=== PATIENT | male | born 1950 ===

== ENCOUNTER 2018-06-10 08:23 | Day surgery (SDC) | payer MEDICARE, MEDICAID ==
[2018-06-10 08:36] VITALS: BMI 23.4
[2018-06-10 09:03] LABS: BASO % 0.2 % (0.0-2.0); EOS # 0.6 K/uL (0.0-0.7); EOS % 6.6 % (0.0-4.0); HEMOGLOBIN 14.4 g/dL (12.0-18.0); LYMPH # 2.6 K/uL (1.0-4.3); LYMPH % 28.9 % (20.0-40.0); MEAN CELL VOLUME 92.9 fL (80.0-94.0); MEAN CORPUSCULAR HEMOGLOBIN 31.8 pg (27.0-31.0); MEAN CORPUSCULAR HGB CONC 34.2 g/dL (33.0-37.0); MEAN PLATELET VOLUME 8.5 fL (7.2-11.7); MONO # 0.7 K/uL (0.0-0.8); MONO % 7.3 % (0.0-10.0); NEUT # 5.2 K/uL (1.8-7.0); NRBC % 0.2 % (0.0-2.0); RBC 4.53 Mil/uL (4.40-5.90); RED CELL DISTRIBUTION WIDTH 13.4 % (11.5-14.5); WHITE BLOOD COUNT 9.1 K/uL (4.8-10.8)
[2018-06-10 09:30] LABS: BLOOD UREA NITROGEN 20 mg/dL (9-20); CALCIUM 9.2 mg/dl (8.6-10.4); GFR NON-AFRICAN AMERICAN > 60
[2018-06-10] MEDS ORDERED: Iohexol 240 (50 ml) ONE (09:53)
[2018-06-10] MEDS ORDERED: Ciprofloxacin 400mg/200ml D5W 400 MG/200 ML BAG IVPB ONE (09:53)
[2018-06-10] MEDS ORDERED: Lidocaine 2% Jelly (Uro-Jet) ONE (09:54)
[2018-06-10] MEDS ORDERED: Propofol 10 mg/ml Inj (20 ML) ONE (10:02)
[2018-06-10] MEDS ORDERED: Lactated Ringer's 1,000 ML IV SCH (11:00)
[2018-06-10 11:32] VITALS: O2SAT 98
[2018-06-10 12:12] VITALS: BP 157/60; PULSE 88; RESP 18; TEMP 98
--- NOTE | 2018-06-10 19:31 | RAD ---
Date of service: 06/10/2018 PROCEDURE: Intraoperative Fluoroscopy. HISTORY: HEMATURIA FINDINGS: Fluoroscopic assistance was provided. Fluoroscopy time = 5.0 sec. Radiation dose = 0.3369 mGy Please refer to the operative report from JAMARCUS Ortega.
--- NOTE | 2018-06-12 15:04 | CARD ---
APPROVED REPORT Date of service: 06/10/2018 EKG Measurement Heart [id number] <Conclusion> Normal sinus rhythm Left axis deviation Low voltage in limb leads Abnormal ECG
--- NOTE | 2018-06-24 06:58 | OP ---
PROCEDURE DATE: 06/10/2018 PREOPERATIVE DIAGNOSES: Hematuria, prostatic hypertrophy. POSTOPERATIVE DIAGNOSES: Small bladder stone, urethral stricture, prostatic hypertrophy. DESCRIPTION OF PROCEDURE: While the patient in lithotomy position, genitalia prepped and draped in sterile fashion. Cysto direct vision done showed some stricture at the urethra, which was dilated. After that, the scope was inserted into the bladder. The prostate is mildly enlarged. There was a floating small stone in the bladder removed. Bilateral retrograde pyelogram done for the right and the left showed no evidence of any obstruction or stone. The patient tolerated the procedure well. After emptying the bladder, the scope was removed and the patient transferred in stable condition. Vero Vela MD
== END 2018-06-10 12:28 | disposition home or self-care (01) ==
LOC: C.SDS 08:23
PROVIDERS: ATTEND Specialist
DX: N21.0 Calculus in bladder (principal); N40.1 Benign prostatic hyperplasia with lower urinary tract symptoms; N35.919 Unspecified urethral stricture, male, unspecified site
CPT/HCPCS: 36415; 52341; 52352; 80048; 82365; 85025; 88300; 93005; C1758; J0744; Q9966